=== PATIENT | male | born 1965 | race Caucasian/White ===

== ENCOUNTER 2020-07-27 11:16 | Inpatient (IN) | payer BC, MEDICAID ==
[~2020-07-27] VITALS: Ht 172.7 cm; Wt 75.4 kg
[2020-07-27] VITALS (10 sets, daily range): BP systolic 96–123; BP diastolic 58–73
[~2020-07-27 11:16] MED LIST: GEMF600T89 PO; LEVO200T8 PO; NITR0.4T48 SL; humalog SQ
[2020-07-27 11:41] LABS: BASOPHILS # (AUTO) 0.1 X10'3 (0-0.2); BASOPHILS % (AUTO) 1.2 % (0-1); EOSINOPHILS # (AUTO) 0.1 X10'3 (0-0.9); EOSINOPHILS % (AUTO) 0.9 % (0-6); HEMATOCRIT 46.5 % (42.0-52.0); LYMPHOCYTES # (AUTO) 2.4 X10'3 (1.1-4.8); MEAN CORPUSCULAR HEMOGLOBIN 31.3 PG (27.0-31.0); MEAN CORPUSCULAR HGB CONC 34.4 g/dL (33.0-36.5); MEAN PLATELET VOLUME 9.5 FL (7.4-10.4); MONOCYTES # (AUTO) 0.9 X10'3 (0-0.9); MONOCYTES % (AUTO) 9.5 % (2-12); NEUTROPHILS # (AUTO) 6.2 X10'3 (1.8-7.7); NEUTROPHILS % (AUTO) 63.4 % (42-75); PLATELET COUNT 228 X10'3 (140-440); RED BLOOD COUNT 5.11 X10'6 (4.70-6.10); RED CELL DISTRIBUTION WIDTH 13.2 % (11.5-14.5); WHITE BLOOD COUNT 9.7 X10'3 (4.5-11.0)
[2020-07-27 12:05] LABS: ALANINE AMINOTRANSFERASE 19 U/L (12-78); ALBUMIN/GLOBULIN RATIO 1.1 (1.1-1.5); ALKALINE PHOSPHATASE 122 IU/L (46-116); ANION GAP 7 (8-16); ASPARTATE AMINO TRANSFERASE 31 U/L (10-37); BILIRUBIN,TOTAL 1.3 MG/DL (0.1-1.0); BLOOD UREA NITROGEN 16 MG/DL (7-18); BUN/CREATININE RATIO 12.3 (5.4-32.0); CALCIUM 8.9 MG/DL (8.5-10.1); CHLORIDE 95 MMOL/L (99-107); POTASSIUM 5.4 MMOL/L (3.5-5.1); SODIUM 132 MMOL/L (135-145); TOTAL CARBON DIOXIDE 29.9 MMOL/L (24-32); TOTAL PROTEIN 7.6 G/DL (6.4-8.2); eGFR 57 ML/MIN
[2020-07-27 12:06] LABS: GLUCOSE 546 MG/DL (70-104)
[2020-07-27] MEDS ORDERED: heparin 10,000 units/1 ML INJ IV ONE ×2 (12:10)
[2020-07-27] MEDS ORDERED: heparin 10,000 units/1 ML INJ IV PRN ×2 (12:10→14:05)
[2020-07-27] MEDS ORDERED: aspirin 325mg tablet PO ONE (12:10)
[2020-07-27] MEDS ORDERED: nitroGLYCERIN 1gm ointment UD TP ONE (12:10)
[2020-07-27 12:30] LABS: PARTIAL THROMBOPLASTIN TIME 28 SECONDS (22-32)
[2020-07-27] MEDS: heparin 25,000 UNIT/250ml bag 250 ML IV SCH ×2 (12:30→20:18)
[2020-07-27 12:34] LABS: D-DIMER < 0.19 MG/L FEU (0-0.50)
[2020-07-27] MEDS ORDERED: LEVO125T8 PO (13:19)
[2020-07-27] MEDS ORDERED: HUMALOG PUMP (13:19)
[2020-07-27] MEDS ORDERED: LIOT5TAB10 PO (13:19)
[2020-07-27] MEDS ORDERED: HYDROcodone/acetaminophen 5mg/325mg tablet PO PRN (14:05)
[2020-07-27] MEDS ORDERED: acetaminophen 325mg tablet PO PRN ×2 (14:05)
[2020-07-27] MEDS ORDERED: magnesium 4gm in 100ml NS 100 ML IV PRN (14:05)
[2020-07-27] MEDS ORDERED: ondansetron/PF 4mg/2ml inj IV PRN (14:05)
[2020-07-27] MEDS ORDERED: HYDROcodone/acetaminophen 10/325mg tab PO PRN (14:05)
[2020-07-27] MEDS ORDERED: MESSAGE TO PHARMACY PO ONE (14:05)
[2020-07-27] MEDS ORDERED: glucagon, human recombinant 1mg kit SUBCUT PRN (14:05)
[2020-07-27] MEDS ORDERED: morphine 2 MG/ML inj. syringe IV PRN ×2 (14:05)
[2020-07-27] MEDS ORDERED: dextrose ORAL solution 15 GM/59 ML bottle PO PRN ×2 (14:05)
[2020-07-27] MEDS ORDERED: potassium Cl 40MEQ/1/2NS 520ml 520 ML IV PRN ×2 (14:05)
[2020-07-27] MEDS ORDERED: dextrose 50%-water 50ml dispensing syringe IV PRN ×2 (14:05)
[2020-07-27] MEDS ORDERED: mag hydrox/Alum hydrox/simeth 30ml oral suspension PO PRN (14:05)
[2020-07-27] MEDS ORDERED: magnesium 2GM in 50ml NS 50 ML IV PRN (14:05)
[2020-07-27] MEDS ORDERED: heparin 25,000 UNIT/250ml bag 250 ML IV SCH (14:05)
[2020-07-27] MEDS ORDERED: potassium Cl 20 mEq SR tablet PO PRN ×2 (14:05)
[2020-07-27] MEDS ORDERED: magnesium hydroxide 30ml (MOM) UD suspension PO PRN (14:05)
[2020-07-27] MEDS ORDERED: metoclopramide 5 mg/ml inj IV PRN (14:05)
[2020-07-27] MEDS ORDERED: magnesium Cl slow-release 64mg tablet PO PRN (14:05)
[2020-07-27 14:37] LABS: MAGNESIUM 2.2 MG/DL (1.5-2.4)
[2020-07-27] MEDS ORDERED: insulin regular, human U-100 3ml vial - multi-dose IV ONE (15:30)
--- NOTE | 2020-07-27 15:47 | NUR ---
Spoke with Dr Burgos, agrees with Dr Iverson's order for 6 units Regular insulin (See EMAR) for BG and K.
--- NOTE | 2020-07-27 15:58 | NUR ---
Patient in room ED 12. I have received report from víctor brownlee and had the opportunity to ask questions and assume patient care.
--- NOTE | 2020-07-27 16:10 | NUR ---
received pt. into room 315,c/o chest pain 3/10 to left shouilder, non-radiating, nitro paste intact to left chest, VSS, hep gtt. infusing @1000u/hr. to rfa ,, moniter w/ NSR, no ectopy, consent signed for heart cath, blood [id number], report given to ros, laboratory worker rn @1630, to laboratory worker via w/c
[2020-07-27] MEDS ORDERED: iohexol 350MG/ML 100ml bottle IV ONE (16:28)
[2020-07-27] MEDS ORDERED: heparin 1,000unit/ml 10ml vial 10 ML ONE (16:28)
[2020-07-27] MEDS ORDERED: verapamil 2.5 mg/ml inj IV ONE (16:28)
[2020-07-27] MEDS ORDERED: nitroGLYCERIN-Tridil 50MG/D5W 250 ML IV ONE (16:28)
[2020-07-27] MEDS ORDERED: LIDOcaine 1% (10mg/ml)w/preservative injection 20ml MDV ONE (16:28)
[2020-07-27] MEDS ORDERED: midazolam 1 mg/ML 2ml injection ONE (16:28)
[2020-07-27] MEDS ORDERED: fentaNYL/PF 50MCG/1 ML 2ML syringe ONE (16:28)
--- NOTE | 2020-07-27 17:00 | NUR ---
received report from laborer dairy farm rn,DONA, post op vs started, pt denies pain right wrist vasc band in place, ,no bleeding,right arm up on pillow, pt groggy, but responsive, denies pain
[2020-07-27] MEDS ORDERED: iohexol 350 MG/ML 50ML vial IV ONE (17:04)
--- NOTE | 2020-07-27 17:45 | NUR ---
Dr haile contacted by phone to clarify heparin gtt orders, as ros, earthmoving labourer rn stated to continue heparin gtt,post cath orders stated to discontinue. Dr. Haile stated to continue heparin gtt as ordered,with surgical consult pending for MVD. New orders from Dr. Acosta @2727 state to discontinue heparin gtt, heparin gtt. off at this time.
[2020-07-27] MEDS: nitroGLYCERIN 1gm ointment UD TP SCH (18:33)
--- NOTE | 2020-07-27 18:36 | NUR ---
Problems reprioritized. Patient report given, questions answered & plan of care reviewed with .víctor short
--- NOTE | 2020-07-27 18:40 | NUR ---
Patient in room MED 315. I have received report from Patricia, and had the opportunity to ask questions and assume patient care.
--- NOTE | 2020-07-27 19:15 | NUR ---
Got the report from babar GOOD. Per babar GOOD report Dr. Griffin had ordered that the patient should continue the heparin drip, but at 174, Dr. Acosta ordered some diagnostic studies. Per babar GOOD, the heparin supposed to be discontinued by Dr. Acosta. To clarify the issue I called Dr. Acosta, and he denied that he put any order to Discontinue the patient's Heparin. He suppose to see the patient in the morning. Called Dr. Griffin regarding the heparin drip. He was upset and mentioned that he talked with babar GOOD and told her to continue the heparin drip and discontinue the troponins. I ordered state cardiac PTT which came to be 31. Patient received a bolus of 4000 units and Heparin drip started at 900 units/hr (9ml/hr). Will recheck the Cardiac PTT in 6 hr. Emma, the charge nurse is aware of the babar GOOD confusion regarding stopping the heparin drip. Patient is alert, oriented x4. Not at any distress. On heparin drip with NSR on tele monitor. Addendum: 07/27/20 at 2042 by Raffy Phillip RN The PTT was 30 not 31.
--- NOTE | 2020-07-27 19:20 | NUR ---
Called Dr. Acosta to clarify if he discontinues the Heparin drip on patient. He said that he did not put the order for Heparin drip to be discontinued. Called Dr. Juan Griffin, and he said that he talked to daysutft nurse to continue the heparin drip and dc all the troponins.
--- NOTE | 2020-07-27 19:56 | NUR ---
patient received late tray. will cover for dinner blood sugar.
[2020-07-27] MEDS: K and/or MAG REPLACEMENT MC SCH (20:00)
[2020-07-27] MEDS: insulin Lispro (HumaLOG) vial - multi-dose SQ SCH ×2 (20:03→22:06)
--- NOTE | 2020-07-27 20:44 | NUR ---
the cardiac PTT result was 31 not 30. Cheryl-FLORENTINO, the charge nurse is aware of it too.
[2020-07-27] MEDS ORDERED: temazepam 15mg capsule PO PRN (21:00)
[2020-07-27 21:25] LABS: ABG BASE EXCESS -1.6 mmol/L (-2.0-2.0); ABG HCO3 23.6 mmol/L (22.0-26.0); ABG OXYGEN SATURATION 94.1 % (94-97); ABG PCO2 (T) 41.5 mmHg (35.0-48.0); ABG PO2 (T) 69.5 mmHg (75.0-100.0); FCOHb 1.7 % (0.0-3.9); FMetHb 0.3 % (0.0-1.5); FO2Hb 92.2 % (94-97); TOTAL HEMOGLOBIN 15.7 G/dl (14.0-18.0)
[2020-07-27] MEDS: insulin glargine (Lantus) pen - multi-dose SQ SCH (22:05)
[2020-07-28] VITALS (7 sets, daily range): BP systolic 98–122; BP diastolic 59–68
[2020-07-28 03:04] LABS: ALANINE AMINOTRANSFERASE 21 U/L (12-78); ALBUMIN 3.4 G/DL (3.4-5.0); ALKALINE PHOSPHATASE 109 IU/L (46-116); ANION GAP 12 (8-16); ASPARTATE AMINO TRANSFERASE 56 U/L (10-37); BILIRUBIN,TOTAL 0.7 MG/DL (0.1-1.0); BLOOD UREA NITROGEN 14 MG/DL (7-18); BUN/CREATININE RATIO 15.1 (5.4-32.0); CALCIUM 8.6 MG/DL (8.5-10.1); CHLORIDE 100 MMOL/L (99-107); CHOL/HDL RATIO 3.9 (0.00-4.99); CHOLESTEROL 159 MG/DL (0-200); CREATININE 0.93 MG/DL (0.60-1.10); GLUCOSE 328 MG/DL (70-104); HDL CHOLESTEROL 41 MG/DL (35-60); LDL CHOLESTEROL 101 MG/DL (50-100); MAGNESIUM 2.2 MG/DL (1.5-2.4); POTASSIUM 4.4 MMOL/L (3.5-5.1); SODIUM 136 MMOL/L (135-145); TOTAL CARBON DIOXIDE 24.2 MMOL/L (24-32); TOTAL PROTEIN 6.8 G/DL (6.4-8.2); TRIGLYCERIDES 180 MG/DL (20-135); eGFR 84 ML/MIN
[2020-07-28 03:08] LABS: BASOPHILS # (AUTO) 0.1 X10'3 (0-0.2); BASOPHILS % (AUTO) 0.9 % (0-1); EOSINOPHILS # (AUTO) 0.1 X10'3 (0-0.9); HEMATOCRIT 42.4 % (42.0-52.0); HEMOGLOBIN 14.6 g/dl (14.0-17.9); LYMPHOCYTES # (AUTO) 2.4 X10'3 (1.1-4.8); LYMPHOCYTES % (AUTO) 25.4 % (21-51); MEAN CORPUSCULAR HEMOGLOBIN 31.3 PG (27.0-31.0); MEAN CORPUSCULAR HGB CONC 34.5 g/dL (33.0-36.5); MEAN CORPUSCULAR VOLUME 90.6 FL (78-98); MEAN PLATELET VOLUME 10.2 FL (7.4-10.4); MONOCYTES # (AUTO) 0.9 X10'3 (0-0.9); MONOCYTES % (AUTO) 9.4 % (2-12); NEUTROPHILS % (AUTO) 63.3 % (42-75); PLATELET COUNT 216 X10'3 (140-440); RED BLOOD COUNT 4.67 X10'6 (4.70-6.10); RED CELL DISTRIBUTION WIDTH 12.8 % (11.5-14.5); WHITE BLOOD COUNT 9.5 X10'3 (4.5-11.0)
--- NOTE | 2020-07-28 06:20 | NUR ---
Problems reprioritized. Patient report given, questions answered & plan of care reviewed with Radha.
--- NOTE | 2020-07-28 06:20 | NUR ---
Patient in room MED 315. I have received report from FLORENTINO Akbar and had the opportunity to ask questions and assume patient care.
[2020-07-28] MEDS: K and/or MAG REPLACEMENT MC SCH ×2 (08:00→20:00)
[2020-07-28] MEDS: aspirin 325mg tablet PO SCH (09:06)
[2020-07-28] MEDS: liothyronine sod 5mcg tablet PO SCH (09:07)
[2020-07-28] MEDS: levoTHYROXINE 125mcg tablet PO SCH (09:07)
[2020-07-28] MEDS: insulin Lispro (HumaLOG) vial - multi-dose SQ SCH ×4 (09:16→21:38)
[2020-07-28] MEDS: nitroGLYCERIN 1gm ointment UD TP SCH ×2 (11:29→21:19)
[2020-07-28] MEDS ORDERED: MESSAGE TO NURSING PO ONE ×4 (11:50)
[2020-07-28] MEDS ORDERED: dextrose 50%-water 50ml dispensing syringe IV PRN (11:50)
[2020-07-28] MEDS ORDERED: insulin glargine (Lantus) pen - multi-dose SQ PRN (11:50)
--- NOTE | 2020-07-28 12:37 | NUR ---
Pt with T1DM, current A1c is 7.0%. Attempted visit with pt at bedside however pt sleeping. Written DM education with RD contact information left at patient's bedside. BG levels not very well controlled since admit with range 328-546 mg/dL. Pt on glycemic protocol and insulin drip added to med list today. Pt admit with NSTEMI and CAD, pending CABG tentatively schedule for tomorrow per MD note. Noted mildly elevated TG 180 mg/dL and LDL 101 mg/dL. Pt would benefit from nutrition therapy education post-op once stable. Will continue to follow. Addendum: 07/28/20 at [address] Amended: Links added.
[2020-07-28] MEDS ORDERED: ringers solution, lacted 1,000 ML IV ONE (13:50)
--- NOTE | 2020-07-28 18:00 | NUR ---
Patient in room MED 315. I have received report from FLORENTINO Rosales and had the opportunity to ask questions and assume patient care.
--- NOTE | 2020-07-28 18:39 | NUR ---
Problems reprioritized. Patient report given, questions answered & plan of care reviewed with FLORENTINO Gregorio.
[2020-07-28] MEDS: heparin 25,000 UNIT/250ml bag 250 ML IV SCH (19:52)
[2020-07-28] MEDS: sod chloride 0.9% 10ml flush syringe IV SCH (20:00)
[2020-07-28] MEDS: insulin glargine (Lantus) pen - multi-dose SQ SCH (21:33)
[2020-07-28] MEDS ORDERED: cefazolin/dext.iso 2gm/100ml 100 ML IV ONE (21:35)
[2020-07-29] VITALS (18 sets, daily range): BP systolic 85–134; BP diastolic 48–95
[2020-07-29 01:03] LABS: BASOPHILS # (AUTO) 0.1 X10'3 (0-0.2); EOSINOPHILS % (AUTO) 0.4 % (0-6); HEMATOCRIT 40.5 % (42.0-52.0); LYMPHOCYTES # (AUTO) 2.2 X10'3 (1.1-4.8); LYMPHOCYTES % (AUTO) 18.3 % (21-51); MEAN CORPUSCULAR HEMOGLOBIN 31.1 PG (27.0-31.0); MEAN CORPUSCULAR HGB CONC 34.7 g/dL (33.0-36.5); MEAN CORPUSCULAR VOLUME 89.6 FL (78-98); MEAN PLATELET VOLUME 10.3 FL (7.4-10.4); MONOCYTES # (AUTO) 1.2 X10'3 (0-0.9); MONOCYTES % (AUTO) 10.4 % (2-12); NEUTROPHILS # (AUTO) 8.3 X10'3 (1.8-7.7); NEUTROPHILS % (AUTO) 69.9 % (42-75); PLATELET COUNT 216 X10'3 (140-440); RED BLOOD COUNT 4.52 X10'6 (4.70-6.10); RED CELL DISTRIBUTION WIDTH 12.9 % (11.5-14.5); WHITE BLOOD COUNT 11.8 X10'3 (4.5-11.0)
[2020-07-29 01:17] LABS: ALANINE AMINOTRANSFERASE 30 U/L (12-78); ALBUMIN 3.3 G/DL (3.4-5.0); ALBUMIN/GLOBULIN RATIO 0.9 (1.1-1.5); ALKALINE PHOSPHATASE 94 IU/L (46-116); ANION GAP 11 (8-16); ASPARTATE AMINO TRANSFERASE 125 U/L (10-37); BILIRUBIN,TOTAL 0.5 MG/DL (0.1-1.0); BLOOD UREA NITROGEN 22 MG/DL (7-18); BUN/CREATININE RATIO 21.4 (5.4-32.0); CALCIUM 8.5 MG/DL (8.5-10.1); CHLORIDE 102 MMOL/L (99-107); CREATININE 1.03 MG/DL (0.60-1.10); GLUCOSE 195 MG/DL (70-104); POTASSIUM 4.1 MMOL/L (3.5-5.1); SODIUM 136 MMOL/L (135-145); TOTAL CARBON DIOXIDE 22.6 MMOL/L (24-32); TOTAL PROTEIN 6.8 G/DL (6.4-8.2); eGFR 75 ML/MIN
--- NOTE | 2020-07-29 03:00 | NUR ---
Stopped hep gtt at 3 am
[2020-07-29] MEDS ORDERED: mupirocin 2% nasal ointment 1gm UD NS ONE (05:00)
[2020-07-29] MEDS ORDERED: ceFAZolin 1000mg inj ONE (05:05)
[2020-07-29] MEDS ORDERED: cefazolin/dext.iso 2gm/100ml 100 ML IV ONE (05:30)
[2020-07-29] MEDS ORDERED: famotidine 20mg tablet PO ONE (06:00)
[2020-07-29] MEDS ORDERED: Insulin Reg/NS 100units/100mL 100 ML IV SCH (06:00)
[2020-07-29] MEDS ORDERED: gabapentin 400mg capsule PO ONE (06:00)
[2020-07-29] MEDS ORDERED: vancomycin/NS 1 GM ADD-VANTAGE 250 ML IV ONE (06:00)
[2020-07-29] MEDS ORDERED: cefazolin/dext.iso 2gm/50ml 50 ML IV ONE (06:00)
[2020-07-29] MEDS ORDERED: LORazepam 2 mg/ml vial IV ONE (06:00)
--- NOTE | 2020-07-29 06:00 | NUR ---
Problems reprioritized. Patient report given, questions answered & plan of care reviewed with FLORENTINO Rosales.
--- NOTE | 2020-07-29 06:10 | NUR ---
Called anesthesiologist Dr. Faust regarding blood glucose being 325. Per Dr. Faust, start on 10 units insulin bolus, then start on 4 units/hr afterwards
--- NOTE | 2020-07-29 06:31 | NUR ---
RN gave 10 units regular insulin via IV bolus per Dr. Faust and confirmed with Michelle from OR. RN started vancomycin
--- NOTE | 2020-07-29 06:40 | NUR ---
Patient in room MED 315. I have received report from FLORENTINO Gregorio and had the opportunity to ask questions and assume patient care.
[2020-07-29] MEDS ORDERED: midazolam 1 mg/ML 2ml injection ONE (06:44)
[2020-07-29] MEDS ORDERED: SUFENTANIL CITRATE 50 MCG/ML 2ml ampule IV ONE ×2 (06:44→11:41)
--- NOTE | 2020-07-29 06:50 | NUR ---
Administered 2mg ativan per MD orders - pt taken down to OR along with nursing staff on hospital bed. Pt stable, no C/O or S/S of distress. AM vitals were taken and entered.
[2020-07-29 07:32] LABS: ABG BASE EXCESS -4.2 mmol/L (-2.0-2.0); ABG OXYGEN SATURATION 99.7 % (94-97); ABG PCO2 33.9 mmHg (35.0-48.0); ABG PO2 456.9 mmHg (75.0-100.0); CL (ABG) 101 mmol/L (98-110); FCOHb 0.5 % (0.0-3.9); FMetHb 0.3 % (0.0-1.5); FO2Hb 98.9 % (94-97); IONIZED CA (ABG) 1.12 mmol/L (1.10-1.43); TOTAL HEMOGLOBIN 12.6 G/dl (14.0-18.0)
[2020-07-29] MEDS ORDERED: heparin 1,000 units/ml 10ml inj ONE (08:00)
[2020-07-29] MEDS ORDERED: methylPREDNISolone sod succ 1000mg vial ONE (08:00)
[2020-07-29] MEDS ORDERED: calcium chloride 100 MG/1 ML inj IV ONE (08:00)
[2020-07-29] MEDS: sod chloride 0.9% 10ml flush syringe IV SCH (08:00)
[2020-07-29] MEDS ORDERED: aminocaproic acid 250 MG/1 ML inj. ONE (08:00)
[2020-07-29] MEDS ORDERED: sodium bicarbonate (8.4%) 1 mEq/ml syringe ONE (08:00)
[2020-07-29] MEDS: liothyronine sod 5mcg tablet PO SCH (08:00)
[2020-07-29] MEDS ORDERED: albumin (human) 25% 100 ML IV solution IV ONE (08:00)
[2020-07-29] MEDS: nitroGLYCERIN 1gm ointment UD TP SCH (08:00)
[2020-07-29] MEDS ORDERED: heparin 10,000 units/1 ML INJ ONE (08:00)
[2020-07-29] MEDS ORDERED: potassium Cl 2 mEq/ml inj IV ONE (08:00)
[2020-07-29] MEDS ORDERED: LIDOcaine 2% (20 mg/ml) 5ml cardiac syringe ONE (08:00)
[2020-07-29 08:07] LABS: ABG BASE EXCESS VENOUS -6.2 mmol/L (-2.0 - 2.0); ABG HCO3 VENOUS 19.5 mmol/L (21.0-28.0); ABG PCO2 VENOUS 39.1 mmHg (41.0-54.0); ABG PO2 VENOUS 43.5 mmHg (25.0-35.0); CL (ABG) 102 mmol/L (98-110); FCOHb VENOUS 0.7 %; FO2Hb VENOUS 78.3 %; GLUCOSE (ABG) 363 mg/dl (70-105); IONIZED CA (ABG) 1.13 mmol/L (1.10-1.43); K (ABG) 3.6 mmol/L (3.5-5.0); TOTAL HEMOGLOBIN 11.3 G/dl (14.0-18.0)
[2020-07-29] MEDS ORDERED: papaverine 30 mg/ml 2ml inj. IA ONE (08:07)
[2020-07-29] MEDS: aspirin 325mg tablet PO SCH (08:30)
[2020-07-29 08:45] LABS: ABG BASE EXCESS VENOUS -3.3 mmol/L (-2.0 - 2.0); ABG HCO3 VENOUS 22.5 mmol/L (21.0-28.0); ABG PCO2 VENOUS 43.3 mmHg (41.0-54.0); ABG PO2 VENOUS 39.9 mmHg (25.0-35.0); CL (ABG) 102 mmol/L (98-110); FHHb VENOUS 24.1 %; FMetHb VENOUS 0.3 % (0.0 - 0.5); FO2Hb VENOUS 74.6 %; GLUCOSE (ABG) 329 mg/dl (70-105); IONIZED CA (ABG) 1.17 mmol/L (1.10-1.43); K (ABG) 3.7 mmol/L (3.5-5.0); TOTAL HEMOGLOBIN 12.1 G/dl (14.0-18.0)
[2020-07-29 09:09] LABS: ABG BASE EXCESS VENOUS -4.1 mmol/L (-2.0 - 2.0); ABG HCO3 VENOUS 21.9 mmol/L (21.0-28.0); ABG PCO2 VENOUS 43.4 mmHg (41.0-54.0); ABG PO2 VENOUS 45.5 mmHg (25.0-35.0); CL (ABG) 103 mmol/L (98-110); FCOHb VENOUS 0.9 %; FHHb VENOUS 19.1 %; FMetHb VENOUS 0.3 % (0.0 - 0.5); FO2Hb VENOUS 79.7 %; GLUCOSE (ABG) 287 mg/dl (70-105); IONIZED CA (ABG) 1.18 mmol/L (1.10-1.43); K (ABG) 3.5 mmol/L (3.5-5.0); TOTAL HEMOGLOBIN 12.8 G/dl (14.0-18.0)
[2020-07-29] MEDS ORDERED: insulin regular, human U-100 3ml vial - multi-dose ONE (09:28)
[2020-07-29] MEDS ORDERED: ipratropium/albuterol 3ml nebule IH PRN (09:55)
[2020-07-29 09:58] LABS: ABG BASE EXCESS -1.4 mmol/L (-2.0-2.0); ABG HCO3 22.1 mmol/L (22.0-26.0); ABG OXYGEN SATURATION 99.3 % (94-97); ABG PCO2 32.4 mmHg (35.0-48.0); ABG PO2 383.5 mmHg (75.0-100.0); CL (ABG) 103 mmol/L (98-110); FCOHb 0.3 % (0.0-3.9); FMetHb 0.3 % (0.0-1.5); FO2Hb 98.7 % (94-97); GLUCOSE (ABG) 199 mg/dl (70-105); IONIZED CA (ABG) 1.05 mmol/L (1.10-1.43); TOTAL HEMOGLOBIN 9.6 G/dl (14.0-18.0)
[2020-07-29] MEDS ORDERED: MESSAGE TO NURSING PO ONE (10:00)
[2020-07-29 10:24] LABS: ABG BASE EXCESS VENOUS 1.5 mmol/L (-2.0 - 2.0); ABG HCO3 VENOUS 26.1 mmol/L (21.0-28.0); ABG PCO2 VENOUS 40.9 mmHg (41.0-54.0); ABG PO2 VENOUS 45.1 mmHg (25.0-35.0); CL (ABG) 102 mmol/L (98-110); FCOHb VENOUS 0.2 %; FHHb VENOUS 16.7 %; FMetHb VENOUS 0.3 % (0.0 - 0.5); FO2Hb VENOUS 82.8 %; GLUCOSE (ABG) 177 mg/dl (70-105); IONIZED CA (ABG) 1.27 mmol/L (1.10-1.43); K (ABG) 4.2 mmol/L (3.5-5.0); TOTAL HEMOGLOBIN 9.7 G/dl (14.0-18.0)
[2020-07-29] MEDS: levoTHYROXINE 125mcg tablet PO SCH (10:33)
[2020-07-29] MEDS ORDERED: rocuronium 10mg/ml inj IV ONE (10:43)
[2020-07-29] MEDS ORDERED: LIDOcaine 2% (20mg/ml) 5ml vial ONE (10:43)
[2020-07-29] MEDS ORDERED: acetaminophen 1,000mg/100ml IV 100 ML IV ONE (10:43)
[2020-07-29] MEDS ORDERED: phenylephrine 10mg/ml inj. ONE (10:43)
[2020-07-29] MEDS ORDERED: etomidate 2mg/ml inj. ONE (10:43)
[2020-07-29] MEDS ORDERED: epiNEPHrine 1 mg/ml inj ONE (10:43)
[2020-07-29 10:51] LABS: ABG BASE EXCESS VENOUS -0.9 mmol/L (-2.0 - 2.0); ABG PCO2 VENOUS 46.7 mmHg (41.0-54.0); ABG PO2 VENOUS 56.9 mmHg (25.0-35.0); CL (ABG) 104 mmol/L (98-110); FCOHb VENOUS 0.3 %; FHHb VENOUS 11.3 %; FMetHb VENOUS 0.3 % (0.0 - 0.5); FO2Hb VENOUS 88.1 %; GLUCOSE (ABG) 165 mg/dl (70-105); IONIZED CA (ABG) 1.29 mmol/L (1.10-1.43); K (ABG) 3.7 mmol/L (3.5-5.0); TOTAL HEMOGLOBIN 9.9 G/dl (14.0-18.0)
[2020-07-29 10:53] LABS: ACTIVATED CLOTTING TIME 116 SEC (101-148)
[2020-07-29] MEDS ORDERED: Neutra Phos packet PO PRN (11:35)
[2020-07-29] MEDS ORDERED: pantoprazole 40 MG vial IV ONE (11:35)
[2020-07-29] MEDS ORDERED: mineral oil 133ml enema RC PRN (11:35)
[2020-07-29] MEDS ORDERED: normal saline 250ml IV soln 250 ML IV PRN (11:35)
[2020-07-29] MEDS ORDERED: sodium phosphate inj. 30 MMOL in dextrose 5%-water 250 ML IV PRN (11:35)
[2020-07-29] MEDS ORDERED: nitroGLYCERIN-Tridil 50MG/D5W 250 ML IV PRN (11:35)
[2020-07-29] MEDS ORDERED: metoclopramide 5 mg/ml inj IV PRN (11:35)
[2020-07-29] MEDS ORDERED: magnesium 2GM in 50ml NS 50 ML IV PRN (11:35)
[2020-07-29] MEDS ORDERED: ondansetron/PF 4mg/2ml inj IV PRN (11:35)
[2020-07-29] MEDS ORDERED: niCARDipine-NS 40mg/200ml IVPB 200 ML IV PRN (11:35)
[2020-07-29] MEDS ORDERED: HYDROcodone/acetaminophen 10/325mg tab PO PRN (11:35)
[2020-07-29] MEDS: Insulin Reg/NS 100units/100mL 100 ML IV SCH ×2 (11:35→15:16)
[2020-07-29] MEDS ORDERED: magnesium citrate 296ml oral solution PO PRN (11:35)
[2020-07-29] MEDS ORDERED: dextrose 50%-water 50ml dispensing syringe IV PRN (11:35)
[2020-07-29] MEDS ORDERED: potassium Cl 40MEQ/250ML bag 250 ML IV PRN (11:35)
[2020-07-29] MEDS ORDERED: albumin (Human) 5% 250ml 250 ML IV PRN (11:35)
[2020-07-29] MEDS ORDERED: potassium Cl 40MEQ/1/2NS 520ml 520 ML IV PRN (11:35)
[2020-07-29] MEDS ORDERED: potassium CL 10mEq/100ml bag 100 ML IV PRN (11:35)
[2020-07-29] MEDS ORDERED: acetaminophen 325mg tablet PO PRN ×2 (11:35)
[2020-07-29] MEDS ORDERED: magnesium 4gm in 100ml NS 100 ML IV PRN (11:35)
[2020-07-29] MEDS ORDERED: magnesium hydroxide 30ml (MOM) UD suspension PO PRN (11:35)
[2020-07-29] MEDS ORDERED: potassium Cl 20 mEq SR tablet PO PRN (11:35)
[2020-07-29] MEDS ORDERED: sodium phosphate inj. 15 MMOL in dextrose 5%-water 250 ML IV PRN (11:35)
[2020-07-29] MEDS ORDERED: morphine 4 MG/ML inj SYRINge IV PRN ×2 (11:35)
[2020-07-29] MEDS ORDERED: insulin glargine (Lantus) pen - multi-dose SQ PRN (11:35)
[2020-07-29] MEDS ORDERED: bisacodyl 10mg suppository rectal RC PRN (11:35)
[2020-07-29] MEDS ORDERED: DOPamine 400mg/D5W 250ml 250 ML IV PRN (11:35)
--- NOTE | 2020-07-29 11:50 | NUR ---
Received to room 2041, accompanied by MDs and surgical crew. Placed on ventilator, to cardiac exercise physiologist, arterial line and PA line pressure monitored. Chest tubes to suction at 20 cm. Christopher cath to gravity drainage. Dressings are dry and intact. See assessment record. All vasoactive drugs are infusing via central line.
[2020-07-29] MEDS ORDERED: esmolol inj. 10 ML IV ONE (12:01)
[2020-07-29 12:03] LABS: ABG BASE EXCESS -0.6 mmol/L (-2.0-2.0); ABG OXYGEN SATURATION 98.8 % (94-97); ABG PCO2 (T) 39.3 mmHg (35.0-48.0); FCOHb 0.3 % (0.0-3.9); FMetHb 0.6 % (0.0-1.5); FO2Hb 97.9 % (94-97); PATIENT TEMPERATURE 36.8; RESPIRATORY RATE 12 b/min; TIDAL VOLUME 550 mL; TOTAL HEMOGLOBIN 12.1 G/dl (14.0-18.0)
[2020-07-29 12:19] LABS: BASOPHILS % (AUTO) 0.4 % (0-1); EOSINOPHILS % (AUTO) 0.5 % (0-6); HEMATOCRIT 32.4 % (42.0-52.0); HEMOGLOBIN 11.6 g/dl (14.0-17.9); LYMPHOCYTES % (AUTO) 11.8 % (21-51); MEAN CORPUSCULAR HEMOGLOBIN 31.6 PG (27.0-31.0); MEAN CORPUSCULAR HGB CONC 35.8 g/dL (33.0-36.5); MEAN CORPUSCULAR VOLUME 88.3 FL (78-98); MEAN PLATELET VOLUME 9.2 FL (7.4-10.4); MONOCYTES # (AUTO) 0.7 X10'3 (0-0.9); MONOCYTES % (AUTO) 7.8 % (2-12); NEUTROPHILS # (AUTO) 6.6 X10'3 (1.8-7.7); NEUTROPHILS % (AUTO) 79.5 % (42-75); PLATELET COUNT 135 X10'3 (140-440); RED BLOOD COUNT 3.67 X10'6 (4.70-6.10); RED CELL DISTRIBUTION WIDTH 12.8 % (11.5-14.5); WHITE BLOOD COUNT 8.3 X10'3 (4.5-11.0)
[2020-07-29 12:40] LABS: ALANINE AMINOTRANSFERASE 18 U/L (12-78); ALBUMIN 2.6 G/DL (3.4-5.0); ALBUMIN/GLOBULIN RATIO 1.1 (1.1-1.5); ALKALINE PHOSPHATASE 61 IU/L (46-116); ANION GAP 7 (8-16); ASPARTATE AMINO TRANSFERASE 83 U/L (10-37); BILIRUBIN,TOTAL 0.5 MG/DL (0.1-1.0); BLOOD UREA NITROGEN 14 MG/DL (7-18); BUN/CREATININE RATIO 15.2 (5.4-32.0); CALCIUM 8.2 MG/DL (8.5-10.1); CHLORIDE 109 MMOL/L (99-107); CREATININE 0.92 MG/DL (0.60-1.10); GLUCOSE 110 MG/DL (70-104); POTASSIUM 3.8 MMOL/L (3.5-5.1); SODIUM 141 MMOL/L (135-145); TOTAL CARBON DIOXIDE 25.2 MMOL/L (24-32); TOTAL PROTEIN 4.9 G/DL (6.4-8.2); eGFR 85 ML/MIN
--- NOTE | 2020-07-29 12:40 | NUR ---
CABG Consult: Pt s/p CABGx2 and would benefit from written/verbal CABG ed once stable post-op. Addendum: 07/29/20 at [address] Amended: Links added.
[2020-07-29 12:46] LABS: MAGNESIUM 3.8 MG/DL (1.5-2.4)
[2020-07-29] MEDS: gabapentin 300mg capsule PO SCH ×2 (12:47→20:52)
[2020-07-29] MEDS: sodium chloride 0.45% 1,000 ML IV SCH (12:48)
[2020-07-29 12:50] LABS: PHOSPHORUS 0.6 MG/DL (2.3-4.5)
[2020-07-29 13:19] LABS: PARTIAL THROMBOPLASTIN TIME 26 SECONDS (22-32)
[2020-07-29] MEDS: ceFAZolin/D5W- 1GM premix 50 ML IV SCH (16:08)
--- NOTE | 2020-07-29 16:43 | NUR ---
Updated Dr. Acosta via telephone: Patient stable but goes apneic on vent. Also, MD aware of critically low Phosph level, replacing per protocol. No new orders at this time.
[2020-07-29 17:54] LABS: BASOPHILS % (AUTO) 0.2 % (0-1); EOSINOPHILS % (AUTO) 0.1 % (0-6); HEMATOCRIT 35.3 % (42.0-52.0); HEMOGLOBIN 12.6 g/dl (14.0-17.9); LYMPHOCYTES # (AUTO) 0.6 X10'3 (1.1-4.8); LYMPHOCYTES % (AUTO) 5.9 % (21-51); MEAN CORPUSCULAR HEMOGLOBIN 31.5 PG (27.0-31.0); MEAN CORPUSCULAR HGB CONC 35.6 g/dL (33.0-36.5); MEAN CORPUSCULAR VOLUME 88.4 FL (78-98); MEAN PLATELET VOLUME 9.4 FL (7.4-10.4); MONOCYTES # (AUTO) 0.3 X10'3 (0-0.9); MONOCYTES % (AUTO) 3.6 % (2-12); NEUTROPHILS # (AUTO) 8.7 X10'3 (1.8-7.7); NEUTROPHILS % (AUTO) 90.2 % (42-75); PLATELET COUNT 147 X10'3 (140-440); RED CELL DISTRIBUTION WIDTH 12.9 % (11.5-14.5); WHITE BLOOD COUNT 9.7 X10'3 (4.5-11.0)
[2020-07-29 18:02] LABS: ALBUMIN 2.8 G/DL (3.4-5.0); ANION GAP 8 (8-16); BLOOD UREA NITROGEN 12 MG/DL (7-18); BUN/CREATININE RATIO 14.6 (5.4-32.0); CALCIUM 7.7 MG/DL (8.5-10.1); CHLORIDE 110 MMOL/L (99-107); CREATININE 0.82 MG/DL (0.60-1.10); GLUCOSE 153 MG/DL (70-104); MAGNESIUM 2.3 MG/DL (1.5-2.4); PHOSPHORUS 1.9 MG/DL (2.3-4.5); POTASSIUM 3.9 MMOL/L (3.5-5.1); SODIUM 143 MMOL/L (135-145); TOTAL CARBON DIOXIDE 25.1 MMOL/L (24-32); eGFR > 90 ML/MIN
--- NOTE | 2020-07-29 18:16 | NUR ---
Problems reprioritized. Patient report given, questions answered & plan of care reviewed with Lliiana GOOD.
--- NOTE | 2020-07-29 18:46 | NUR ---
1830: Patient in room ICU 2041. I have received report from Abhijit GOOD and had the opportunity to ask questions and assume patient care. Patient waking up, moves all extremities, nods head appropriately to questions, weaning from vent in progress, on 40% FiO2 on SIMV, sats 100%. 1846: Attempted SPONT setting, still having brief moments of apnea. Will continue to monitor closely.
[2020-07-29] MEDS: potassium Cl 20mEq/100mL bag 100 ML IV PRN ×2 (19:25→20:33)
[2020-07-29] MEDS: sennosides/docusate sodium tablet PO SCH (20:00)
[2020-07-29] MEDS: mupirocin 2% nasal ointment 1gm UD NS SCH (20:33)
--- NOTE | 2020-07-29 20:42 | NUR ---
Patient's kana Wilburn called x 3 since 1844. Asking again to speak to patient. Explained again that patient is not able to talk on the phone but is in the process of waking up.
[2020-07-29] MEDS: atorvastatin 10mg tablet PO SCH (20:52)
--- NOTE | 2020-07-29 21:14 | NUR ---
Weaning from ventilator in progress, tolerating SPONT setting without apneic periods so far. Temp 38.5: thermostat in room turned down, urine, sputum and blood cultures obtained prior to administration of PM antibiotic.
[2020-07-29] MEDS: vancomycin/NS 1 GM ADD-VANTAGE 250 ML IV SCH (21:44)
[2020-07-29 22:12] LABS: CLARITY,URINE CLEAR (Clear); COLOR,URINE YELLOW (Yellow); GLUCOSE, URINE NEGATIVE (Neg); KETONES,URINE 40 mg/dl (Neg); LEUKOCYTE ESTERASE ,URINE NEGATIVE (Neg); NITRITES, URINE NEGATIVE (Neg); OCCULT BLOOD,URINE MODERATE (Neg); PROTEIN,URINE NEGATIVE (Neg); UROBILINOGEN,URINE 0.2 E.U/dL (0.2-1.0)
[2020-07-29 22:15] LABS: UA COLLECTION TYPE FOLEY CATH
[2020-07-29 22:20] LABS: BACTERIA,URINE NONE SEEN /HPF (Neg); SQUAMOUS EPITHELIAL CELL,UR NONE SEEN /LPF (FEW); WBC,URINE NONE SEEN /HPF (0-4)
[2020-07-29 22:27] LABS: ABG BASE EXCESS -2.2 mmol/L (-2.0-2.0); ABG HCO3 20.9 mmol/L (22.0-26.0); ABG OXYGEN SATURATION 97.8 % (94-97); ABG PCO2 (T) 32.4 mmHg (35.0-48.0); ABG PO2 (T) 117.8 mmHg (75.0-100.0); FCOHb 0.3 % (0.0-3.9); FMetHb 0.3 % (0.0-1.5); FO2Hb 97.2 % (94-97); PATIENT TEMPERATURE 38.2; PEEP 5 cm H2O; TOTAL HEMOGLOBIN 11.8 G/dl (14.0-18.0)
--- NOTE | 2020-07-29 22:38 | NUR ---
Extubated patient to 4LNC with RT. Patient tolerated well, able to clear secretions and maintain airway independently.
[2020-07-30] VITALS (24 sets, daily range): BP systolic 89–123; BP diastolic 52–69
[2020-07-30] MEDS: ceFAZolin/D5W- 1GM premix 50 ML IV SCH ×4 (00:23→23:56)
[2020-07-30 02:58] LABS: BASOPHILS % (AUTO) 0.1 % (0-1); EOSINOPHILS % (AUTO) 0 % (0-6); HEMATOCRIT 33.3 % (42.0-52.0); HEMOGLOBIN 11.6 g/dl (14.0-17.9); LYMPHOCYTES # (AUTO) 0.7 X10'3 (1.1-4.8); LYMPHOCYTES % (AUTO) 5.8 % (21-51); MEAN CORPUSCULAR HEMOGLOBIN 31.1 PG (27.0-31.0); MEAN CORPUSCULAR HGB CONC 34.8 g/dL (33.0-36.5); MEAN CORPUSCULAR VOLUME 89.4 FL (78-98); MONOCYTES # (AUTO) 1.1 X10'3 (0-0.9); MONOCYTES % (AUTO) 9.7 % (2-12); NEUTROPHILS # (AUTO) 9.5 X10'3 (1.8-7.7); NEUTROPHILS % (AUTO) 84.4 % (42-75); PLATELET COUNT 127 X10'3 (140-440); RED BLOOD COUNT 3.72 X10'6 (4.70-6.10); RED CELL DISTRIBUTION WIDTH 13.1 % (11.5-14.5); WHITE BLOOD COUNT 11.2 X10'3 (4.5-11.0)
[2020-07-30 03:08] LABS: PARTIAL THROMBOPLASTIN TIME 31 SECONDS (22-32)
[2020-07-30] MEDS: Insulin Reg/NS 100units/100mL 100 ML IV SCH (03:13)
[2020-07-30 03:14] LABS: ALANINE AMINOTRANSFERASE 21 U/L (12-78); ALBUMIN 2.8 G/DL (3.4-5.0); ALKALINE PHOSPHATASE 58 IU/L (46-116); ANION GAP 10 (8-16); ASPARTATE AMINO TRANSFERASE 68 U/L (10-37); BILIRUBIN,TOTAL 0.3 MG/DL (0.1-1.0); BLOOD UREA NITROGEN 9 MG/DL (7-18); CALCIUM 7.6 MG/DL (8.5-10.1); CHLORIDE 110 MMOL/L (99-107); CREATININE 0.69 MG/DL (0.60-1.10); GLUCOSE 103 MG/DL (70-104); MAGNESIUM 2.3 MG/DL (1.5-2.4); POTASSIUM 4.2 MMOL/L (3.5-5.1); SODIUM 146 MMOL/L (135-145); TOTAL CARBON DIOXIDE 25.6 MMOL/L (24-32); TOTAL PROTEIN 5.5 G/DL (6.4-8.2); eGFR > 90 ML/MIN
[2020-07-30 05:15] LABS: OXYGEN SATURATION (MIXED VEN) 46.2 % (60-80); PO2 MIXED VENOUS (TEMP COR) 26.9 mmHg (35-46)
--- NOTE | 2020-07-30 06:16 | NUR ---
[id number]: Stood patient at side of the bed with 2 person assist. Tolerated well. Used flutter valve and IS. Strong cough. Returned to bed with 2 person assist without assistance. 0615: Problems reprioritized. Patient report given, questions answered & plan of care reviewed with Abhijit GOOD.
[2020-07-30] MEDS: potassium Cl 20mEq/100mL bag 100 ML IV PRN ×2 (06:29→10:55)
[2020-07-30] MEDS: HYDROcodone/acetaminophen 10/325mg tab PO PRN ×3 (06:45→15:00)
[2020-07-30 07:39] LABS: ABG BASE EXCESS -4.6 mmol/L (-2.0-2.0); ABG HCO3 18.4 mmol/L (22.0-26.0); ABG PCO2 (T) 28.1 mmHg (35.0-48.0); ABG PO2 (T) 89.3 mmHg (75.0-100.0); ALLEN'S TEST POSITIVE; FCOHb 0.3 % (0.0-3.9); FLOW 2 L/min; FMetHb 0.5 % (0.0-1.5); FO2Hb 95.2 % (94-97); PATIENT TEMPERATURE 37.6; TOTAL HEMOGLOBIN 10.6 G/dl (14.0-18.0)
[2020-07-30] MEDS: sennosides/docusate sodium tablet PO SCH ×2 (07:43→20:29)
[2020-07-30] MEDS: gabapentin 300mg capsule PO SCH ×3 (07:43→20:30)
[2020-07-30] MEDS: levoTHYROXINE 125mcg tablet PO SCH (07:43)
[2020-07-30] MEDS: liothyronine sod 5mcg tablet PO SCH (07:43)
[2020-07-30] MEDS: vancomycin/NS 1 GM ADD-VANTAGE 250 ML IV SCH ×2 (07:43→20:29)
[2020-07-30] MEDS: aspirin 325mg tablet, delayed-release (Ecotrin) PO SCH (07:43)
[2020-07-30] MEDS: mupirocin 2% nasal ointment 1gm UD NS SCH ×2 (07:43→20:29)
[2020-07-30] MEDS: metoprolol tartrate 12.5mg (1/2 tablet) PO SCH ×2 (07:44→20:00)
[2020-07-30] MEDS: insulin Lispro (HumaLOG) vial - multi-dose SQ SCH ×4 (08:50→22:35)
[2020-07-30 13:55] LABS: MAGNESIUM 2.8 MG/DL (1.5-2.4); PHOSPHORUS 2.5 MG/DL (2.3-4.5); POTASSIUM 5.1 MMOL/L (3.5-5.1)
--- NOTE | 2020-07-30 18:13 | NUR ---
Problems reprioritized. Patient report given, questions answered & plan of care reviewed with Liliana GOOD.
--- NOTE | 2020-07-30 18:30 | NUR ---
Patient in room ICU 2041. I have received report from Abhijit GOOD and had the opportunity to ask questions and assume patient care. Addendum: 07/30/20 at 1956 by Liliana Snow RN Amended: Links added.
--- NOTE | 2020-07-30 19:30 | NUR ---
Assisted patient back to bed with 2 person assist. Tolerated well. Requiring reminders to maintain sternal precautions occasionally.
[2020-07-30] MEDS: atorvastatin 10mg tablet PO SCH (20:30)
--- NOTE | 2020-07-30 22:51 | NUR ---
Patient appears to be sleeping at this time.
[2020-07-31] VITALS (25 sets, daily range): BP systolic 95–129; BP diastolic 42–80
[2020-07-31 03:14] LABS: BASOPHILS % (AUTO) 0.1 % (0-1); EOSINOPHILS % (AUTO) 0 % (0-6); HEMATOCRIT 29.9 % (42.0-52.0); HEMOGLOBIN 10.3 g/dl (14.0-17.9); LYMPHOCYTES # (AUTO) 1.3 X10'3 (1.1-4.8); LYMPHOCYTES % (AUTO) 13.1 % (21-51); MEAN CORPUSCULAR HEMOGLOBIN 31.4 PG (27.0-31.0); MEAN CORPUSCULAR HGB CONC 34.4 g/dL (33.0-36.5); MEAN CORPUSCULAR VOLUME 91.4 FL (78-98); MEAN PLATELET VOLUME 10.1 FL (7.4-10.4); MONOCYTES # (AUTO) 1.1 X10'3 (0-0.9); MONOCYTES % (AUTO) 11.6 % (2-12); NEUTROPHILS # (AUTO) 7.3 X10'3 (1.8-7.7); NEUTROPHILS % (AUTO) 75.2 % (42-75); PLATELET COUNT 117 X10'3 (140-440); RED BLOOD COUNT 3.27 X10'6 (4.70-6.10); RED CELL DISTRIBUTION WIDTH 13.1 % (11.5-14.5); WHITE BLOOD COUNT 9.7 X10'3 (4.5-11.0)
[2020-07-31 03:33] LABS: ALBUMIN 2.5 G/DL (3.4-5.0); ANION GAP 6 (8-16); BLOOD UREA NITROGEN 19 MG/DL (7-18); BUN/CREATININE RATIO 21.3 (5.4-32.0); CALCIUM 7.4 MG/DL (8.5-10.1); CHLORIDE 105 MMOL/L (99-107); CREATININE 0.89 MG/DL (0.60-1.10); GLUCOSE 234 MG/DL (70-104); MAGNESIUM 2.7 MG/DL (1.5-2.4); PHOSPHORUS 2.5 MG/DL (2.3-4.5); POTASSIUM 5.3 MMOL/L (3.5-5.1); SODIUM 138 MMOL/L (135-145); TOTAL CARBON DIOXIDE 26.6 MMOL/L (24-32); eGFR 88 ML/MIN
--- NOTE | 2020-07-31 06:20 | NUR ---
Problems reprioritized. Patient report given, questions answered & plan of care reviewed with Jorge GOOD.
--- NOTE | 2020-07-31 06:30 | NUR ---
Patient in room ICU 2041. I have received report from Liliana GOOD and had the opportunity to ask questions and assume patient care.
[2020-07-31] MEDS: sennosides/docusate sodium tablet PO SCH ×2 (07:12→19:17)
[2020-07-31] MEDS: liothyronine sod 5mcg tablet PO SCH (07:13)
[2020-07-31] MEDS: levoTHYROXINE 125mcg tablet PO SCH (07:13)
[2020-07-31] MEDS: gabapentin 300mg capsule PO SCH (07:13)
[2020-07-31] MEDS: aspirin 325mg tablet, delayed-release (Ecotrin) PO SCH (07:14)
[2020-07-31] MEDS: pantoprazole 40mg Tablet.DR PO SCH (07:14)
[2020-07-31] MEDS: metoprolol tartrate 12.5mg (1/2 tablet) PO SCH ×2 (07:15→19:17)
[2020-07-31] MEDS: mupirocin 2% nasal ointment 1gm UD NS SCH (07:15)
[2020-07-31] MEDS ORDERED: furosemide 40mg/4ml inj IV ONE (07:45)
[2020-07-31] MEDS: insulin Lispro (HumaLOG) vial - multi-dose SQ SCH ×3 (08:32→18:26)
[2020-07-31] MEDS: insulin glargine (Lantus) pen - multi-dose SQ SCH (08:34)
[2020-07-31] MEDS: sodium chloride 0.45% 1,000 ML IV SCH (11:35)
--- NOTE | 2020-07-31 18:28 | NUR ---
Patient report given, questions answered & plan of care reviewed with Jeet GOOD.
[2020-07-31] MEDS: atorvastatin 20mg tablet PO SCH (20:07)
--- NOTE | 2020-07-31 21:24 | NUR ---
PT RESTING COMFORTABLY IN BED WITH CALL LIGHT WITHIN REACH AND BED LOCKED IN LOWEST POSITION, PT TALKATIVE AND IN [employer]ITS AND REPORTS HE IS IN NO PAIN OR DISTRESS.
[2020-07-31] MEDS: Insulin Reg/NS 100units/100mL 100 ML IV SCH (21:34)
[2020-08-01] VITALS (25 sets, daily range): BP systolic 95–149; BP diastolic 54–83
--- NOTE | 2020-08-01 05:51 | NUR ---
NO OVERNIGHT EVENTS, PT RESTING COMFORTABLY IN BED LOCKED IN LOWEST POSITION WITH CALL LIGHT WITHIN REACH. PT IN [employer] AND TALKATIVE.
[2020-08-01 06:17] LABS: BASOPHILS % (AUTO) 0.2 % (0-1); EOSINOPHILS % (AUTO) 0.3 % (0-6); HEMATOCRIT 30.3 % (42.0-52.0); HEMOGLOBIN 10.6 g/dl (14.0-17.9); LYMPHOCYTES # (AUTO) 1.6 X10'3 (1.1-4.8); LYMPHOCYTES % (AUTO) 19.3 % (21-51); MEAN CORPUSCULAR HEMOGLOBIN 31.3 PG (27.0-31.0); MEAN CORPUSCULAR HGB CONC 34.9 g/dL (33.0-36.5); MEAN CORPUSCULAR VOLUME 89.8 FL (78-98); MEAN PLATELET VOLUME 9.6 FL (7.4-10.4); MONOCYTES # (AUTO) 0.9 X10'3 (0-0.9); MONOCYTES % (AUTO) 10.4 % (2-12); NEUTROPHILS # (AUTO) 5.8 X10'3 (1.8-7.7); NEUTROPHILS % (AUTO) 69.8 % (42-75); PLATELET COUNT 142 X10'3 (140-440); RED BLOOD COUNT 3.38 X10'6 (4.70-6.10); RED CELL DISTRIBUTION WIDTH 12.9 % (11.5-14.5); WHITE BLOOD COUNT 8.3 X10'3 (4.5-11.0)
[2020-08-01 06:39] LABS: ALBUMIN 2.3 G/DL (3.4-5.0); ANION GAP 6 (8-16); BLOOD UREA NITROGEN 22 MG/DL (7-18); BUN/CREATININE RATIO 28.9 (5.4-32.0); CALCIUM 7.7 MG/DL (8.5-10.1); CHLORIDE 105 MMOL/L (99-107); CREATININE 0.76 MG/DL (0.60-1.10); GLUCOSE 83 MG/DL (70-104); MAGNESIUM 2.3 MG/DL (1.5-2.4); PHOSPHORUS 2.7 MG/DL (2.3-4.5); SODIUM 143 MMOL/L (135-145); TOTAL CARBON DIOXIDE 31.8 MMOL/L (24-32); eGFR > 90 ML/MIN
[2020-08-01] MEDS: sennosides/docusate sodium tablet PO SCH (07:24)
[2020-08-01] MEDS: metoprolol tartrate 12.5mg (1/2 tablet) PO SCH ×2 (07:24→20:12)
[2020-08-01] MEDS: pantoprazole 40mg Tablet.DR PO SCH (07:24)
[2020-08-01] MEDS: levoTHYROXINE 125mcg tablet PO SCH (07:24)
[2020-08-01] MEDS: liothyronine sod 5mcg tablet PO SCH (07:24)
[2020-08-01] MEDS: aspirin 325mg tablet, delayed-release (Ecotrin) PO SCH (07:25)
[2020-08-01] MEDS: insulin glargine (Lantus) pen - multi-dose SQ SCH (07:29)
[2020-08-01] MEDS: insulin Lispro (HumaLOG) vial - multi-dose SQ SCH ×3 (08:30→17:52)
--- NOTE | 2020-08-01 11:23 | NUR ---
Initial: Pt s/p CABGx2 this admit PO 75-100% avg most meals inclusing NCS diet post-op; noted GLU 118-321mg/dl RD d/w RN regarding carb controlled diet post-op as NCS does not limit carb intake only concentrated sweets. New carb controlled diet now active in EMR. Pt seen by RD for written/verbal CABG/HH diet eds w/ [employer] coupons and RD contact information provided. Pt is agreeable to strawberry dixon smoothie BIDLD for wound healing; notified. LBM 06/28 receiving routine senna dna s/p mag citrate today per EMR. Will continue to monitor for additional protein needs post-op. Rec: 1. continue carb controlled diet 2. strawberry dixon smoothie BIDLD 3. routine bowel care 4. weekly wts Addendum: 08/01/20 at [address] Amended: Links added.
[2020-08-01] MEDS ORDERED: JUVEN Smoothie Arginine/Glut./Ca2+Bmb (Juven 19.3pkt) 240ml cup PO SCH (12:30)
--- NOTE | 2020-08-01 18:19 | NUR ---
Problems reprioritized. Patient report given, questions answered & plan of care reviewed with Negra GOOD.
--- NOTE | 2020-08-01 18:30 | NUR ---
Patient in room ICU 2041. I have received report from Namita and had the opportunity to ask questions and assume patient care.
[2020-08-01] MEDS: atorvastatin 20mg tablet PO SCH (20:11)
[2020-08-02] VITALS (11 sets, daily range): BP systolic 99–132; BP diastolic 41–73
--- NOTE | 2020-08-02 06:26 | NUR ---
Patient in room ICU 2041. I have received report from FLORENTINO Omer and had the opportunity to ask questions and assume patient care.
--- NOTE | 2020-08-02 06:30 | NUR ---
Patient in room ICU 2041. I have received report from Negra GOOD and had the opportunity to ask questions and assume patient care.
--- NOTE | 2020-08-02 06:31 | NUR ---
Problems reprioritized. Patient report given, questions answered & plan of care reviewed with Gillian and Nikkie RNs.
[2020-08-02 07:34] LABS: BASOPHILS % (AUTO) 0.6 % (0-1); EOSINOPHILS # (AUTO) 0.1 X10'3 (0-0.9); EOSINOPHILS % (AUTO) 1.4 % (0-6); HEMATOCRIT 31.9 % (42.0-52.0); LYMPHOCYTES # (AUTO) 1.5 X10'3 (1.1-4.8); LYMPHOCYTES % (AUTO) 21.2 % (21-51); MEAN CORPUSCULAR HEMOGLOBIN 31.2 PG (27.0-31.0); MEAN CORPUSCULAR HGB CONC 34.6 g/dL (33.0-36.5); MEAN CORPUSCULAR VOLUME 90.2 FL (78-98); MEAN PLATELET VOLUME 9.6 FL (7.4-10.4); MONOCYTES # (AUTO) 0.8 X10'3 (0-0.9); MONOCYTES % (AUTO) 10.9 % (2-12); NEUTROPHILS # (AUTO) 4.7 X10'3 (1.8-7.7); NEUTROPHILS % (AUTO) 65.9 % (42-75); PLATELET COUNT 189 X10'3 (140-440); RED BLOOD COUNT 3.54 X10'6 (4.70-6.10); RED CELL DISTRIBUTION WIDTH 13.1 % (11.5-14.5); WHITE BLOOD COUNT 7.1 X10'3 (4.5-11.0)
[2020-08-02] MEDS: pantoprazole 40mg Tablet.DR PO SCH (07:49)
--- NOTE | 2020-08-02 08:00 | NUR ---
Aniket by to see patient, satisfied with patients progress, labs and assessment, will discharge patient to home today.
[2020-08-02 08:34] LABS: ALBUMIN 2.3 G/DL (3.4-5.0); ANION GAP 6 (8-16); BLOOD UREA NITROGEN 18 MG/DL (7-18); BUN/CREATININE RATIO 22.8 (5.4-32.0); CALCIUM 8.2 MG/DL (8.5-10.1); CHLORIDE 103 MMOL/L (99-107); CREATININE 0.79 MG/DL (0.60-1.10); GLUCOSE 266 MG/DL (70-104); MAGNESIUM 2.4 MG/DL (1.5-2.4); PHOSPHORUS 2.3 MG/DL (2.3-4.5); POTASSIUM 4.8 MMOL/L (3.5-5.1); SODIUM 138 MMOL/L (135-145); TOTAL CARBON DIOXIDE 28.9 MMOL/L (24-32); eGFR > 90 ML/MIN
[2020-08-02] MEDS: aspirin 325mg tablet, delayed-release (Ecotrin) PO SCH (08:37)
[2020-08-02] MEDS: levoTHYROXINE 125mcg tablet PO SCH (08:37)
[2020-08-02] MEDS: metoprolol tartrate 12.5mg (1/2 tablet) PO SCH (08:38)
[2020-08-02] MEDS: liothyronine sod 5mcg tablet PO SCH (08:38)
[2020-08-02] MEDS: insulin Lispro (HumaLOG) vial - multi-dose SQ SCH (08:43)
[2020-08-02] MEDS: insulin glargine (Lantus) pen - multi-dose SQ SCH (08:44)
[2020-08-02] MEDS ORDERED: LOP12.5T PO (09:00)
[2020-08-02] MEDS ORDERED: ATOR20TA66 PO (09:00)
[2020-08-02] MEDS ORDERED: HYDR-3972 PO ×3 (09:00→09:01)
[2020-08-02] MEDS ORDERED: ASPI-1071 PO ×2 (09:00)
--- NOTE | 2020-08-02 09:20 | NUR ---
Reviewed discharge instructions with patient, reviewed post cabg instructions and follow up appointments.
[2020-08-02 10:00] LABS: GLUCOSE (ABG) 458 mg/dl (70-105)
--- NOTE | 2020-08-02 10:30 | NUR ---
Patients belongings gathered, patient dressed and escorted down stairs via wheelchair
[2020-08-03] MEDS ORDERED: ASPI-1265 PO (08:51)
== END 2020-08-02 11:18 | disposition home or self-care (01) | DRG 233 ==
LOC: ER 11:16 → ED HOLD 14:01 → MED 3N 16:07 → ICU 2S 07-29 11:46
PROVIDERS: ADMIT Family Medicine; ATTEND Family Medicine
PROC: 4A023N7 Measurement of Cardiac Sampling and Pressure, Left Heart, Percutaneous Approach (ICD-10-PCS; principal; 2020-07-27)
PROC: B2111ZZ Fluoroscopy of Multiple Coronary Arteries using Low Osmolar Contrast (ICD-10-PCS; 2020-07-27)
PROC: B2151ZZ Fluoroscopy of Left Heart using Low Osmolar Contrast (ICD-10-PCS; 2020-07-27)
PROC: 02100Z9 Bypass Coronary Artery, One Artery from Left Internal Mammary, Open Approach (ICD-10-PCS; 2020-07-29)
PROC: 02100Z8 Bypass Coronary Artery, One Artery from Right Internal Mammary, Open Approach (ICD-10-PCS; 2020-07-29)
PROC: 5A1221Z Performance of Cardiac Output, Continuous (ICD-10-PCS; 2020-07-29)
PROC: B24BZZ4 Ultrasonography of Heart with Aorta, Transesophageal (ICD-10-PCS; 2020-07-29)
DX: I25.110 Atherosclerotic heart disease of native coronary artery with unstable angina pectoris (principal); I21.4 Non-ST elevation (NSTEMI) myocardial infarction; E03.9 Hypothyroidism, unspecified; E10.9 Type 1 diabetes mellitus without complications; E78.00 Pure hypercholesterolemia, unspecified; E78.5 Hyperlipidemia, unspecified; F17.210 Nicotine dependence, cigarettes, uncomplicated; Z96.41 Presence of insulin pump (external) (internal); Z79.4 Long term (current) use of insulin; Z79.82 Long term (current) use of aspirin; Z82.49 Family history of ischemic heart disease and other diseases of the circulatory system; Z79.899 Other long term (current) drug therapy; Z71.6 Tobacco abuse counseling
CPT/HCPCS: 0232T; 93306; 93312; 93325; 93458; 96375; 99285; Z7506; Z7508; 36415; 36600; 71045; 71046; 80048; 80053; 80061; 81001; 82330; 82435; 82803; 82810; 82947; 82948; 83036; 83735; 83880; 84100; 84132; 84295; 84443; 84484; 85018; 85025; 85347; 85379; 85384; 85610; 85730; 86885; 86900; 86901; 86920; 87040; 87070; 87077; 87081; 93005; 93880; 93931; 93971; 94002; 94010; 94667; 94668; 94760; 97110; 97116; 97161; 97530; 99152; 99153; A4618; A4620; A6258; A6402; A6449; A7000; A7048; C1713; C1751; C1769; C1894; C9113; G0378; J0131; J0171; J0690; J1644; J1815; J1940; J2001; J2060; J2150; J2250; J2270; J2370; J2440; J2930; J3010; J3370; J3475; J3480; J3490; J7030; J7040; J7050; J7060; J7120; P9045; P9047; Q9967